=== PATIENT | male | born 1970 | race Caucasian/White ===

== ENCOUNTER 2018-05-28 20:26 | Emergency (ER) | payer BC, OTHER ==
[2018-05-28 20:36] VITALS: BP 143/97
--- NOTE | 2018-05-28 21:04 | EDM.PDOC ---
ED HPI GENERAL MEDICAL PROBLEM - General Chief Complaint: General Stated Complaint: RIB PAIN/LEFT ELBOW PAIN Time Seen by Provider: 05/28/18 21:04 Source of Information: Reports: Patient History Limitations: Reports: No Limitations - History of Present Illness INITIAL COMMENTS - FREE TEXT/NARRATIVE: 48-year-old male presents to the ED with chief complaint of severe pain in his right posterior lateral rib cage for the last 8 days. He states it's not bad if he is lying still doesn't necessarily get worse with a cough or deep breathing. However really deep breath can make it have a spasm type pain and certain movements such as getting up from the lying down position is extremely painful. He reports no trauma known to this area. No repetitive twisting or throwing events. 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 This does involve the throwing motion of a heavy metal buckle over top of the load due to type down. He is obese and this may be a muscle strain from external oblique pulling off the musculature. His other problem is pain in his left lateral elbow for the last 6 weeks. Getting worse. No known injury. No previous similar problems. He denies any severe cough in the last several weeks. He is smoking and trying to quit. Onset: Unknown/Unsure, Other (Left elbow pain has been present for about 5-1/2 weeks. Right posterior lateral rib pain gradually worsening for the last 8 days) Onset Date: 05/18/18 Duration: Day(s):, Week(s): (Left elbow pain 5 and half weeks) Location: Reports: Chest (Right posterior lateral rib pain which he is able to localize very well to the ninth 10th rib right at the angle of the rib posterior laterally in the posterior axillary line.), Upper Extremity, Left ( Pain in the left elbow is over the lateral epicondyles.) Quality: Reports: Ache ( A localized area of pain), Other (Pain in his ribs can be extremely spastic and catching pain almost takes his breath away with certain movements. He states "no better he would think that he had broken a rib. ) Severity: Moderate Improves with: Reports: Rest Worsens with: Reports: Other (Right rib pain is worsened by deep breathing and certain movements such as getting up from the lying down position. Left elbow pain is worse with certain movements such as lifting or twisting. But it aches continuously.) Context: Denies: Activity, Exercise, Lifting, Sick Contact, Trauma Associated Symptoms: Reports: No Other Symptoms Treatments DIRECTOR TELEVISION: Reports: NSAIDS (Occasionally takes Motrin.) Chest Pain Score (Numeric/FACES): 1 Right Chest Pain Score (Numeric/FACES): 8 - Related Data Allergies Allergy/AdvReac Type Severity Reaction Status Date / Time No Known Allergies Allergy Verified 05/28/18 20:32 Home Meds: Home Meds Diclofenac Sodium [Voltaren] 50 mg PO TID #30 tab.ec 05/28/18 [Rx] Ibuprofen 800 mg PO BID PRN 05/28/18 [History] predniSONE [Deltasone] 20 mg PO BID #14 tablet 05/28/18 [Rx] Past Medical History - Past Health History Medical/Surgical History: Denies Medical/Surgical History Cardiovascular History: Reports: CA - Past Surgical History GI Surgical History: Reports: Appendectomy, Hernia, Abdominal, Hernia, Inguinal Social & Family History - Family History Family Medical History: Noncontributory - Tobacco Use Smoking Status *Q: Current Every Day Smoker Years of Tobacco use: 30 Packs/Tins Daily: 1 - Caffeine Use Caffeine Use: Reports: Soda, Tea - Recreational Drug Use Recreational Drug Use: No - Living Situation & Occupation Living situation: Reports: Occupation: Employed ED ROS GENERAL - Review of Systems Review Of Systems: See Below Constitutional: Denies: Fever, Chills, Malaise, Weakness, Fatigue, Decreased Appetite, Weight Loss HEENT: Reports: No Symptoms Respiratory: Reports: Other. Denies: Shortness of Breath, Wheezing, Pleuritic Chest Pain Cardiovascular: Reports: Chest Pain (Right posterior lateral rib pain see history present illness), Blood Pressure Problem. Denies: Dyspnea on Exertion, Edema, Lightheadedness, Orthopnea Endocrine: Reports: No Symptoms GI/Abdominal: Reports: No Symptoms : Reports: Frequency, Other (Usually nocturia 2) Musculoskeletal: Reports: Other (Pain in his posterior lateral right ribs. Pain in his left lateral elbow.) Skin: Reports: No Symptoms Neurological: Reports: No Symptoms Psychiatric: Reports: No Symptoms Hematologic/Lymphatic: Reports: No Symptoms Immunologic: Reports: No Symptoms ED EXAM, GENERAL - Physical Exam Exam: See Below Exam Limited By: No Limitations General Appearance: Alert, WD/WN, Mild Distress Respiratory/Chest: Prolonged Expiration, Other (Patient has pain well localized to the posterior lateral right ribs over rib night maintained. I can make the pain slightly worse by firm palpation of his upper abdominal wall musculature where the external obliques attached to the ribs. There was no paraspinal muscle tenderness or rib head subluxation.) Cardiovascular: Normal Peripheral Pulses, Regular Rate, Rhythm, No Edema, No Murmur, No Rub GI/Abdominal: Normal Bowel Sounds, Soft, Non-Tender, No Organomegaly, Other Back Exam: Normal Inspection, Full Range of Motion. No: CVA Tenderness (L), CVA Tenderness (R) Extremities: Other (His emanation of his left upper extremity reveals pain coming from the lateral epicondyles which is well localized to an area about the size of a nickel.) Neurological: Alert, Oriented, CN II-XII Intact, Normal Cognition, Normal Gait Psychiatric: Normal Affect, Normal Mood Skin Exam: Warm, Dry, Intact, Normal Color, No Rash Course - Vital Signs Last Recorded V/S: Last Vital Signs Temp 36.6 C 05/28/18 20:35 Pulse 85 05/28/18 20:35 Resp 18 05/28/18 20:35 BP 143/97 H 05/28/18 20:35 Pulse Ox 96 05/28/18 20:35 - Orders/Labs/Meds Orders: Active Orders 24 hr Category Date Time Status Ribs 2V wo Chest Rt [CR] Stat Exams 05/28/18 21:04 Taken Meds: Medications Discontinued Medications Generic Name Dose Route Start Last Admin Trade Name Baltaq PRN Reason Stop Dose Admin Lidocaine HCl 10 ml 05/28/18 21:05 05/28/18 21:27 Xylocaine 1% INJECT 05/28/18 21:06 10 ml ONETIME ONE Administration Triamcinolone Acetonide 40 mg 05/28/18 21:05 05/28/18 21:27 Kenalog-40 INJECT 05/28/18 21:06 40 mg ONETIME ONE Administration - Radiology Interpretation Free Text/Narrative:: 48-year-old male presents the ED with 2 problems. One posterior lateral rib pain well localized to the ninth and 10th rib at the posterior axillary line. No known injury. Certain movements such as getting up from bed or exquisitely tender. He has only mild to moderate tenderness on firm palpation of the area. I suspect because it so well localized that it is likely due to muscle pulling off of the bone. Right obese and I suspect the external obliques or pulling away from the rib causing his current pain syndrome. Plan two-view chest x-ray will be obtained. Can problem is pain in the left lateral elbow for last 5-1/2 weeks. It's getting worse with increased pain and aching and limited range of motion particularly pronation and lifting. Examination reveals well localized pain to the lateral epicondyles compatible with lateral epicondylitis. I will inject this area with 40 mg of Kenalog under local anesthetic using lidocaine 1% . - Re-Assessments/Exams Free Text/Narrative Re-Assessment/Exam: 05/28/18 22:08 x-rays of his posterior lateral ribs read reveal no abnormalities although the films are not the best quality because of the patient 's size. Fractures or abnormalities of the lower ribs are appreciated. Lower portions of the right lung are also clear. It appears that this is most likely musculoskeletal in origin with tear of the external oblique muscles from the ribs likely due to activity of throwing the belts over top of his loads in the workplace. His abdominal girth is contributing to potential for tear of the external oblique musculature. Treatment will be conservative with Elbert wrap's on during the day and off at night. I will place him on Voltaren 50 mg 3 times daily to reduce pain and inflammation and this will allow him to drive safely. Also Deltasone 20 mg twice daily for the next 7 days to reduce pain and inflammation. In regards to his lateral epicondylitis left elbow I injected the area with 40 mg of Kenalog after anesthetizing the area with 1% non-buffered lidocaine. Patient tolerated the procedure well. Departure - Departure Time of Disposition: 22:10 Disposition: Home, Self-Care 01 Condition: Fair Clinical Impression: Right-sided chest wall pain, Lateral epicondylitis of left elbow Strain of abdominal wall Qualifiers: Encounter type: initial encounter Qualified Code(s): S39.011A - Strain of muscle, fascia and tendon of abdomen, initial encounter - Discharge Information *PRESCRIPTION DRUG MONITORING PROGRAM REVIEWED*: Not Applicable *COPY OF PRESCRIPTION DRUG MONITORING REPORT IN PATIENT JUSTIN: Not Applicable Prescriptions: Diclofenac Sodium [Voltaren] 50 mg PO TID #30 tab.ec predniSONE [Deltasone] 20 mg PO BID #14 tablet Instructions: Tennis Elbow, [id number], Chest Wall Pain, [id number], Muscle Strain Referrals: PCP,None [Primary Care Provider] - Forms: ED Department Discharge Additional Instructions: Evaluation the emergency room tonight for 2 reasons. First is pain in the right posterior lateral lower rib cage for the last 8-10 days. Injury has been identified to cause this. Pain is very well localized to the ninth and 10th ribs where the rib makes the curve towards the front. X-rays of the rib cage did not reveal any abnormalities of the ribs early no fractures or cancer in the bone etc. The cause is actually muscle attachment from the rib called the external obliques which makeup part of the abdominal wall. Part of the muscle was torn away from the surface of the rib which is causing your current pain and the reason it is worse with certain movements such as twisting or getting in and out of bed etc. Suggest treatment with Voltaren 50 mg 3 times daily should reduce pain and inflammation and Deltasone 20 mg with breakfast and supper for 7 days to reduce inflammation as well. Will heal on its own but usually at 621 day injury to heal up. The second problem was inflammation of the tendons where they insert anterior lateral or outside left elbow. This is called lateral epicondylitis or better known as tennis elbow. This was treated with an injection of steroid called Kenalog 40 mg under the aid of local anesthetic. Over the next 24 hours the area will become more swollen and painful because of making it more swollen. After this the pain will start to settle down and usually after 3 days pain should be pretty well gone in the left elbow. The hopes that this will last permanently however sometimes it will recur and need a repeat injection in 3 months time. It is okay to take Tylenol for pain relief if needed in her chest wall. As we discussed it is okay to wrap your chest wall for comfort with Elbert wraps on during the day and off at night for the next 10-14 days until the rib pain settles down. If for some reason the rib pain is not markedly improved in 2-3 weeks' time then you should be reviewed. 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 The left lateral epicondyle was anesthetized with 1% lidocaine and the area was infiltrated with 40 mg of Kenalog under local anesthetic.
[2018-05-28] MEDS ORDERED: Lidocaine 1% 10 ML MDV INJECT ONE (21:05)
[2018-05-28] MEDS ORDERED: Triamcinolone Acetonide 40 MG/ML 1 ML MDV INJECT ONE (21:05)
--- NOTE | 2018-05-29 07:05 | CR ---
Right ribs: Four views of the right ribs were obtained. Comparison: No prior rib exam. Degenerative spurring noted within the acromioclavicular joint of the right shoulder. Lower ribs not well seen due to overlapping of the abdomen. No discrete fracture or other abnormality is seen. Impression: 1. Degenerative spurring within the acromioclavicular joint. 2. Right rib exam shows no discrete fracture. Nondisplaced fracture could easily be missed. Diagnostic code #2
== END 2018-05-28 22:31 | disposition home or self-care (01) ==
LOC: JD.ED 20:26
DX: S39.011A Strain of muscle, fascia and tendon of abdomen, initial encounter (principal); R07.89 Other chest pain; M77.12 Lateral epicondylitis, left elbow; F17.210 Nicotine dependence, cigarettes, uncomplicated; X58.XXXA Exposure to other specified factors, initial encounter
CPT/HCPCS: 20600; 71100; 99283; J2001; J3301; 99284

== ENCOUNTER 2018-12-31 09:16 | Emergency (ER) | payer BC ==
[2018-12-31 09:27] VITALS: BP 128/75; PULSE 80
== END 2018-12-31 09:49 | disposition left against medical advice (07) ==
LOC: JD.ED 09:16
DX: Z53.21 Procedure and treatment not carried out due to patient leaving prior to being seen by health care provider (principal)

== ENCOUNTER 2019-08-29 16:38 | Emergency (ER) | payer BC, OTHER ==
[2019-08-29 16:58] VITALS: BP 132/77; PULSE 93
[2019-08-29] MEDS ORDERED: HYDROmorphone 1 MG/ML Syringe IVPUSH ONE (17:36)
[2019-08-29] MEDS ORDERED: Metoclopramide 10 MG/2 ML SDV IVPUSH ONE (17:36)
--- NOTE | 2019-08-29 17:38 | EDM.PDOC ---
ED HPI GENERAL MEDICAL PROBLEM - General Chief Complaint: Abdominal Pain Stated Complaint: LOWER LT SIDE PAIN Time Seen by Provider: 08/29/19 17:27 Source of Information: Reports: Patient History Limitations: Reports: No Limitations - History of Present Illness INITIAL COMMENTS - FREE TEXT/NARRATIVE: 49-year-old male presents to the ED with left lower quadrant abdominal pain starting about 11:00 this morning. He states the pain is constant usually at a 3-5 level but intermittently will become very colicky in be a 10 out of 10. No associated vomiting. He had a normal bowel of this morning without blood. He has a history of diverticulitis but he states this does not feel anything like previous diverticulitis. He has no history of kidney stones and has not noticed any blood in the urine or dark-colored urine. He states his this day is gone on the pain seems to becoming more intense and is staying in exactly the same place. He has to push very hard in his left lower quadrant to get it to hurt. Denies any flank pain. Previous abdominal surgery is that of a laparoscopic cholecystectomy 2 years ago. He has had a previous umbilical hernia [place] and an inguinal hernia [place] both with mesh grafting. Denies any urinary frequency. Denies fever or chills. Onset: Today, Sudden Onset Date: 08/29/19 Onset Time: 11:00 Duration: Hour(s):, Constant (Strong intermittent colicky component suggestive of renal colic), Getting Worse Location: Reports: Abdomen (Lower quadrant of the abdomen not radiating into his back.) Quality: Reports: Ache (Deep constant aching pain rated 3-5 left lower quadrant but intermittently becomes very sharp and stabbing and is 10 out of 10), Sharp, Stabbing Severity: Moderate Improves with: Reports: None Worsens with: Reports: Other Context: Reports: Other (Spontaneous occurrence). Denies: Activity (Is a little worse with coughing when standing.), Exercise, Lifting, Sick Contact, Trauma Associated Symptoms: Reports: No Other Symptoms Treatments [employer]: Reports: Other (see below) (None.) Left Lower Abdomen Pain Score (Numeric/FACES): 6 - Related Data Allergies Allergy/AdvReac Type Severity Reaction Status Date / Time No Known Allergies Allergy Verified 08/29/19 16:51 Home Meds: Home Meds Simvastatin 5 mg PO DAILY 12/31/18 [History] metFORMIN HCl [Metformin HCl] 1,000 mg PO DAILY 12/31/18 [History] Famotidine [Pepcid] 10 mg PO DAILY PRN 08/29/19 [History] Ibuprofen 600 mg PO Q6H PRN 08/29/19 [History] Melatonin 10 mg PO BEDTIME 08/29/19 [History] levoFLOXacin [Levaquin] 500 mg PO DAILY #9 tab 08/29/19 [Rx] metroNIDAZOLE [Flagyl] 500 mg PO Q8H #20 tab 08/29/19 [Rx] oxyCODONE HCl/Acetaminophen [Percocet 5-325 mg Tablet] 1 - 2 each PO Q4H PRN # 18 tablet 08/29/19 [Rx] Past Medical History - Past Health History Medical/Surgical History: Denies Medical/Surgical History Cardiovascular History: Reports: High Cholesterol, [place] Respiratory History: Reports: Sleep Apnea Gastrointestinal History: Reports: Diverticulosis, GERD, Other (See Below) ( Apparently has had 1 bout of diverticulitis in the past) Endocrine/Metabolic History: Reports: Obesity/BMI 30+, Other (See Below) Other Endocrine/Metabolic History: "pre-diabetes" patient does take metformin 1000mg daily - Infectious Disease History Infectious Disease History: Reports: Chicken Pox - Past Surgical History GI Surgical History: Reports: Appendectomy (Laparoscopic), Hernia, Abdominal ( Umbilical herniorrhaphy with mesh grafting), Hernia, Inguinal (Inguinal herniorrhaphy with mesh grafting) Social & Family History - Family History Family Medical History: Noncontributory - Tobacco Use Smoking Status *Q: Current Every Day Smoker Years of Tobacco use: 20 Packs/Tins Daily: 1 - Caffeine Use Caffeine Use: Reports: Soda - Recreational Drug Use Recreational Drug Use: No - Living Situation & Occupation Living situation: Reports: Occupation: Employed [employer] [facility] [facility] - Review of Systems Review Of Systems: See Below Constitutional: Denies: Fever, Chills, Malaise, Weakness, Fatigue, Decreased Appetite, Weight Loss HEENT: Reports: No Symptoms Respiratory: Reports: No Symptoms Cardiovascular: Reports: No Symptoms Endocrine: Reports: No Symptoms GI/Abdominal: Reports: Abdominal Pain. Denies: Constipation (History of present illness), Diarrhea, Decreased Appetite, Difficulty Swallowing, Flatus, Hematemesis, Hematochezia, Melena, Nausea, Stool Incontinence, Vomiting : Denies: Dysuria, Flank Pain, Frequency Musculoskeletal: Reports: Back Pain (Intermittent problems of low back pain) Skin: Reports: No Symptoms Neurological: Reports: No Symptoms Psychiatric: Reports: No Symptoms Hematologic/Lymphatic: Reports: No Symptoms Immunologic: Reports: No Symptoms ED EXAM, GI/ABD - Physical Exam Exam: See Below Exam Limited By: No Limitations General Appearance: Alert, WD/WN, Mild Distress, Other (Temperature is 37.1. Heart rate was 93 and sinus respiratory is 19 BP 1 3277 pulse ox 95% on room air ) Eyes: Bilateral: Normal Appearance (No blepharal pallor or scleral icterus.) Throat/Mouth: Normal Inspection, Normal Lips, Normal Oropharynx Head: Atraumatic, Normocephalic Neck: Normal Inspection, Supple, Non-Tender, Full Range of Motion. No: Lymphadenopathy (L), Lymphadenopathy (R) Respiratory/Chest: No Respiratory Distress, Lungs Clear, Normal Breath Sounds, No Accessory Muscle Use, Chest Non-Tender Cardiovascular: Normal Peripheral Pulses, Regular Rate, Rhythm, No Edema, No Murmur, No Rub GI/Abdominal Exam: Normal Bowel Sounds, Soft, No Organomegaly, Pelvis Stable, Tender (And is tender to minimal touch left upper quadrant of the abdomen just below the costal margin suggesting possible musculoskeletal origin of his pain. However he has pain on deep palpation left lower quadrant when the colon is compressed.), Other (Abdominal girth limits ability to palpate solid organs. Patient has evidence of previous umbilical herniorrhaphy and appendectomy). No : Guarding, Rigid, Rebound Back Exam: Normal Inspection, Full Range of Motion. No: CVA Tenderness (L), CVA Tenderness (R) Extremities: Normal Inspection, Normal Range of Motion, Non-Tender Neurological: Alert, Oriented, CN II-XII Intact, Normal Cognition Psychiatric: Normal Affect, Normal Mood Skin Exam: Warm, Dry, Intact, Normal Color, No Rash Course - Vital Signs Last Recorded V/S: Last Vital Signs Temp 37.1 C 08/29/19 16:49 Pulse 93 08/29/19 16:49 Resp 19 08/29/19 16:49 BP 132/77 08/29/19 16:49 Pulse Ox 95 08/29/19 16:49 - Orders/Labs/Meds Orders: Active Orders 24 hr Category Date Time Status Abdomen 1V Flat [CR] Stat Exams 08/29/19 17:37 Taken Abdomen Pelvis wo Cont [CT] Stat Exams 08/29/19 18:52 Taken Sodium Chloride 0.9% [Normal Saline] 1,000 ml Med 08/29/19 17:45 Active IV ASDIRECTED Medication Orders Sodium Chloride (Normal Saline) 1,000 mls @ 250 mls/hr IV ASDIRECTED ANGIE Last Admin: 08/29/19 17:49 Dose: 250 mls/hr Labs: Laboratory Tests 08/29/19 08/29/19 08/29/19 Range/Units 17:42 17:42 18:10 WBC 14.49 H (4.23-9.07) K/mm3 RBC 5.44 (4.63-6.08) M/mm3 Hgb 16.1 (13.7-17.5) gm/dl Hct 47.6 (40.1-51.0) % MCV 87.5 (79.0-92.2) fl MCH 29.6 (25.7-32.2) pg MCHC 33.8 (32.2-35.5) g/dl RDW Std Deviation 46.2 H (35.1-43.9) fL Plt Count 309 (163-337) K/mm3 MPV 10.2 (9.4-12.3) fl Neut % (Auto) 67.2 (34.0-67.9) % Lymph % (Auto) 22.2 (21.8-53.1) % [place] % (Auto) 7.1 (5.3-12.2) % Eos % (Auto) 2.3 (0.8-7.0) Baso % (Auto) 0.6 (0.1-1.2) % Neut # (Auto) 9.76 H (1.78-5.38) K/mm3 Lymph # (Auto) 3.21 (1.32-3.57) K/mm3 [place] # (Auto) 1.03 H (0.30-0.82) K/mm3 Eos # (Auto) 0.33 (0.04-0.54) K/mm3 Baso # (Auto) 0.08 (0.01-0.08) K/mm3 Manual Slide Review Normal smear Sodium 140 (136-145) mEq/L Potassium 4.0 (3.5-5.1) mEq/L Chloride 105 (98-107) mEq/L Carbon Dioxide 26 (21-32) mEq/L Anion Gap 13.0 (5-15) BUN 14 (7-18) mg/dL Creatinine 1.0 (0.7-1.3) mg/dL Est Cr Clr Drug Dosing 96.22 mL/min Estimated GFR (MDRD) > 60 (>60) mL/min BUN/Creatinine Ratio 14.0 (14-18) Glucose 113 H (74-106) mg/dL Calcium 8.8 (8.5-10.1) mg/dL Total Bilirubin 0.4 (0.2-1.0) mg/dL AST 23 (15-37) U/L ALT 34 (16-63) U/L Alkaline Phosphatase 90 (46-116) U/L C-Reactive Protein 0.4 (<1.0) mg/dL Total Protein 7.5 (6.4-8.2) g/dl Albumin 3.8 (3.4-5.0) g/dl Globulin 3.7 gm/dL Albumin/Globulin Ratio 1.0 (1-2) Urine Color Yellow (Yellow) Urine Appearance Clear (Clear) Urine pH 6.0 (5.0-8.0) Ur Specific [place] > or = 1.030 (1.005-1.030) Urine Protein Negative (Negative) Urine Glucose (UA) Negative (Negative) Urine Ketones Negative (Negative) Urine Occult Blood Trace-intact H (Negative) Urine Nitrite Negative (Negative) Urine Bilirubin Negative (Negative) Urine Urobilinogen 0.2 (0.2-1.0) Ur Leukocyte Esterase Negative (Negative) Urine RBC 0-5 (0-5) /hpf Urine WBC Not seen (0-5) /hpf Ur Squamous Epith Cells 0-5 (0-5) /hpf Urine Bacteria Rare (FEW) /hpf Urine Mucus Few (FEW) /hpf Meds: Medications Generic Name Dose Route Start Last Admin Trade Name Freq PRN Reason Stop Dose Admin Sodium Chloride 1,000 mls @ 250 mls/hr 08/29/19 17:45 08/29/19 17:49 Normal Saline IV 250 mls/hr ASDIRECTED ANGIE Administration Discontinued Medications Generic Name Dose Route Start Last Admin Trade Name Freq PRN Reason Stop Dose Admin Hydromorphone HCl 1 mg 08/29/19 17:36 08/29/19 17:49 Dilaudid IVPUSH 08/29/19 17:37 1 mg ONETIME ONE Administration Hydromorphone HCl 0.5 mg 08/29/19 18:50 08/29/19 18:59 Dilaudid IVPUSH 08/29/19 18:51 0.5 mg ONETIME ONE Administration Levofloxacin 500 mg 08/29/19 20:11 Levaquin PO 08/29/19 20:12 ONETIME ONE Metoclopramide HCl 10 mg 08/29/19 17:36 08/29/19 17:49 Reglan IVPUSH 08/29/19 17:37 10 mg ONETIME ONE Administration Metronidazole 1,000 mg 08/29/19 20:11 Flagyl PO 08/29/19 20:12 ONETIME ONE - Radiology Interpretation Free Text/Narrative:: 49-year-old male presents to the ED with sudden onset of left lower quadrant abdominal pain about 11:00 this morning. Since that time the pain is persisted in the same area and is constant and he rates the pain as a 4-5 in this area and then intermittently becomes very sharp and colicky and is a 10 out of 10. Is not associate with any vomiting diarrhea fever or chills. He had a normal bowel movement this morning. He has a history of diverticulosis and one bout of diverticulitis. He has no history of renal colic. No changes noted in his urine. Exam reveals tenderness of the left upper quadrant suggesting musculoskeletal origin of pain. However he does have significant pain on deep palpation in the left lower quadrant in the distribution of the colon. Plan KUB. IV normal saline at 250 mils per hour Dilaudid 1 mg IV with Reglan 10 mg IV for pain and nausea relief. Urinalysis when 1 becomes available. Routine labs. - Re-Assessments/Exams Free Text/Narrative Re-Assessment/Exam: 08/29/19 18:09 KUB of the abdomen was done in 4 quadrants due to this patient's size. He has no evidence of free air under the diaphragm. There is a stool bolus at the hepatic flexure. The left colon is air-filled without any stool down to the rectal vault. No obvious stones in either kidney or gallbladder. 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 There is a few nonspecific minimally dilated loops of small bowel left mid abdomen.White count is elevated at 14.49. The auto differential shows 67% neutrophils. Hemoglobin is 16.1 with hematocrit of 47.6. Platelet count is 309,000. 08/29/19 18:53 states the pain was gone for period of time but is now starting to come back in a colicky fashion. Repeat Dilaudid 0.5 mg IV for pain relief. Urinalysis is now back and shows trace of occult blood in the dip. However the slide does not show any red cells. Going to therefore proceed with CT of the abdomen and pelvis per renal protocol. I should be able to see his colon quite well as he is a very large girth. 08/29/19 20:03 he of the abdomen pelvis done per renal protocol does not reveal any signs of a kidney stone. There is a calcified granuloma in the right lower lobe of the lung. There are no pleural effusions. Diffuse fatty infiltration of the liver appreciated. The gallbladder is not distended. There are multiple small gallstones within the gallbladder however. No biliary duct dilatation. Pancreas is within normal limits spleen is normal. Adrenal glands appear normal in appearance. The kidneys are symmetric in size. There is no evidence of hydronephrosis or renal stone. Ureters are normal in caliber. The stomach is not distended. No pathologically dilated small bowel loops are identified. There is diverticulosis of the descending and sigmoid colon. There is focal inflammation surrounding a diverticulum in the mid descending colon. The appearance is consistent with acute diverticulitis. There is no evidence of perforation or abscess. The appendix is not identified. The aorta is normal in caliber. No pathologically enlarged lymph nodes are identified in the abdomen or pelvis. Urinary bladder appears normal. Plan patient is pain- free at this time. He will be given Levaquin 500 mg p.o. and Flagyl 500 mg by mouth now. He will be started on Flagyl 500 mg 3 times daily for the next 7 days and Levaquin 500 mg once daily for another 9 days to complete 10 days of therapy. Percocet tabs 5/325 mg 1 or 2 every 4-6 hours necessary for pain relief for the next day or 2. Note given to excuse him from work for the next 48 hours as he does do manual labor in the workplace. Will return to medical care if he develops fever chills nausea vomiting or pain is not markedly improved in 48 to 72 hours time. Departure - Departure Time of Disposition: 20:06 Disposition: Home, Self-Care 01 Condition: Fair Clinical Impression: Acute diverticulitis Abdominal pain Qualifiers: Abdominal location: left lower quadrant Qualified Code(s): R10.32 - Left lower quadrant pain - Discharge Information *PRESCRIPTION DRUG MONITORING PROGRAM REVIEWED*: Not Applicable *COPY OF PRESCRIPTION DRUG MONITORING REPORT IN PATIENT JUSTIN: Not Applicable Prescriptions: levoFLOXacin [Levaquin] 500 mg PO DAILY #9 tab metroNIDAZOLE [Flagyl] 500 mg PO Q8H #20 tab oxyCODONE HCl/Acetaminophen [Percocet 5-325 mg Tablet] 1 - 2 each PO Q4H PRN # 18 tablet PRN Reason: pain relief. Instructions: Diverticulitis, [id number] Referrals: Rosemary Castro PA-C [Primary Care Provider] - Forms: ED Department Discharge, ED Return to Work/School Form Additional Instructions: Evaluation in the emergency room today in regards to development of acute left lower quadrant abdominal pain about 11:00 this morning. On looking back you did have some left-sided discomfort last evening at home. Examination reveals pain localized to the left lower quadrant over the distribution of the left large bowel or colon. History suggest you have had 1 bout of diverticulitis in the past. There is a strong colicky component to this pain suggesting possible renal stone as a cause of your pain. Lab tests do reveal that the white count is slightly elevated suggesting an underlying infective process. It was 14.5. Normal is less than 10. No noted fever. Urinalysis returned as negative for any red blood cells. CT scan of the abdomen was performed without any contrast and it does identify an area of diverticulitis over the lower left descending colon at the junction with the sigmoid colon. This is in the very early stages of development. Treatment is therefore antibiotic Levaquin 500 mg once daily for the next 10 days. The first tablet was provided in the ED tonight. Also Flagyl 500 mg 1 tablet 3 times daily for the next 7 days to help clear up this infection as well. Percocet 5/325 mg tab 1 or 2 every 4-6 hours necessary for pain relief for the next 2 to 3 days until the pain subsides. Suggest off work for the next 2 days until the bowel has a chance to respond to antibiotic therapy and pain improves. You would need to return to the ED if you develop high fever severe chills or nausea or vomiting. Also if the pain worsens instead of improves over the next 48 to 72 hours you would need to return to the ED. Sepsis Event Note - Evaluation Sepsis Screening Result: No Definite Risk - Focused Exam Vital Signs: Vital Signs Temp Pulse Resp BP Pulse Ox 08/29/19 16:49 37.1 C 93 19 132/77 95 Date Exam was Performed: 08/29/19 Time Exam was Performed: 20:20 - My Orders Last 24 Hours: My Active Orders 08/29/19 17:37 Abdomen 1V Flat [CR] Stat 08/29/19 17:45 Sodium Chloride 0.9% [Normal Saline] 1,000 ml IV ASDIRECTED 08/29/19 18:52 Abdomen Pelvis wo Cont [CT] Stat - Assessment/Plan Last 24 Hours: My Active Orders 08/29/19 17:37 Abdomen 1V Flat [CR] Stat 08/29/19 17:45 Sodium Chloride 0.9% [Normal Saline] 1,000 ml IV ASDIRECTED 08/29/19 18:52 Abdomen Pelvis wo Cont [CT] Stat
[2019-08-29] MEDS ORDERED: Sodium Chloride 0.9% 1,000 ML IV SCH (17:45)
[2019-08-29] MEDS ORDERED: HYDROmorphone 0.5 MG/0.5 ML Syringe IVPUSH ONE (18:50)
[2019-08-29] MEDS ORDERED: metroNIDAZOLE 500 MG Tab PO ONE (20:11)
[2019-08-29] MEDS ORDERED: Levofloxacin 250 MG Tab PO ONE (20:11)
--- NOTE | 2019-08-30 07:21 | CR ---
Abdomen: Supine view of the abdomen was obtained. Comparison: Prior abdominal x-ray of 10/07/17. Bowel gas pattern appears normal. No abnormal calcifications or soft tissue abnormality is seen. Degenerative change is noted within both hips. Scattered endplate spurring is noted within the spine. Impression: 1. Nothing acute is appreciated on supine abdominal x-ray. Diagnostic code #2 This report was dictated in MDT
--- NOTE | 2019-08-30 07:30 | CT ---
CT abdomen and pelvis Technique: Multiple axial sections were obtained from above the dome of the diaphragm inferiorly through the pubic symphysis. Intravenous and oral contrast not utilized. Comparison: Prior CT abdomen and pelvis exam of 10/07/17. Findings: Calcified granuloma is noted within the right lung base measuring 7 mm in size. Liver shows no focal parenchymal abnormality. Spleen size is normal. Small calcified gallstones are seen within the gallbladder. Adrenal glands show no nodule. Pancreas is within normal limits. Aorta shows no aneurysm. No retroperitoneal adenopathy or mesenteric abnormalities are seen. Surgical material is seen off the tip of the cecum presumably from previous appendectomy as the appendix is not visualized. No pelvic mass or adenopathy is seen. Mild inflammatory change is noted around the mid descending colon in the area of diverticuli. This is felt compatible with a mild diverticulitis. Other diverticuli are seen within the sigmoid colon and within other portions of the descending colon without additional findings of diverticulitis. Bone window settings were reviewed. No acute osseous finding is seen. Mild degenerative change is scattered within the spine. Impression: 1. Mild diverticulitis within the mid descending colon. 2. Small calcified gallstones within the gallbladder. 3. No additional abnormality is appreciated. Diagnostic code #3 This report was dictated in MDT I agree with preliminary report from harry, finalized on 08/29/19, 8:41 PM Central Daylight Time
== END 2019-08-29 20:48 | disposition home or self-care (01) ==
LOC: JD.ED 16:38
DX: K57.32 Diverticulitis of large intestine without perforation or abscess without bleeding (principal); I25.2 Old myocardial infarction; E78.00 Pure hypercholesterolemia, unspecified; K21.9 Gastro-esophageal reflux disease without esophagitis; E66.9 Obesity, unspecified; Z68.42 Body mass index [BMI] 45.0-49.9, adult; Z79.899 Other long term (current) drug therapy; Z90.49 Acquired absence of other specified parts of digestive tract; Z98.890 Other specified postprocedural states
CPT/HCPCS: 36415; 74018; 74176; 80053; 81001; 85025; 86140; 96374; 96375; 96376; 99284; A9270; J1170; J2765; J7030

== ENCOUNTER 2019-11-07 17:48 | Emergency (ER) | payer BC, OTHER ==
[2019-11-07 18:07] VITALS: BP 134/57; PULSE 102
[2019-11-07] MEDS ORDERED: Sodium Chloride 0.9% 10 ML Syringe FLUSH PRN (18:25)
[2019-11-07] MEDS ORDERED: HYDROmorphone 1 MG/ML Syringe IVPUSH ONE (18:26)
--- NOTE | 2019-11-07 18:35 | EDM.PDOC ---
ED HPI GENERAL MEDICAL PROBLEM - General Chief Complaint: Lower Extremity Injury/Pain Stated Complaint: ABSCESS ON INNER SIDE OF THIGH Time Seen by Provider: 11/07/19 18:10 Source of Information: Reports: Patient, RN Notes Reviewed History Limitations: Reports: No Limitations - History of Present Illness INITIAL COMMENTS - FREE TEXT/NARRATIVE: Patient is a 49-year-old male who presents to the ED for the evaluation of an abscess on his inner groin area. Patient notes that he has an area on the upper inner thigh, near the leg crease, just near the scrotum that he noticed 2 nights ago. He states this was about golf ball size in size. He notes that he has gotten lumps like this before, but they resolve themselves by popping. He states that this 1 did not however he states it is becoming increasingly more painful, and he also developed a fever yesterday. Temperature at time of triage is 99.1 F. Patient does appreciate some redness around the lump as well, which has not been present before. Other than his fever, he denies any other sick- like symptoms, chills/shortness of breath/cough, nausea/vomiting/diarrhea. 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 He did take some Tylenol/ibuprofen for the pain, early this morning, but has not taken anything since then. Right Groin Pain Score (Numeric/FACES): 8 - Related Data Allergies Allergy/AdvReac Type Severity Reaction Status Date / Time No Known Allergies Allergy Verified 08/29/19 16:51 Home Meds: Home Meds Hydrocodone/Acetaminophen [Hydrocodone-Acetamin 10-325 mg] 1 each PO Q6H #15 tablet 11/07/19 [Rx] Simvastatin 5 mg PO BEDTIME 11/07/19 [History] cephALEXin [Cephalexin] 500 mg PO BID #20 tablet 11/07/19 [Rx] metFORMIN HCl [Metformin HCl] 1,000 mg PO DAILY 11/07/19 [History] Past Medical History Cardiovascular History: Reports: High Cholesterol, [place] Respiratory History: Reports: Sleep Apnea Gastrointestinal History: Reports: Diverticulosis, GERD Endocrine/Metabolic History: Reports: Obesity/BMI 30+, Other (See Below) Other Endocrine/Metabolic History: "pre-diabetes" patient does take metformin 1000mg daily - Infectious Disease History Infectious Disease History: Reports: Chicken Pox - Past Surgical History GI Surgical History: Reports: Appendectomy, Hernia, Abdominal, Hernia, Inguinal Social & Family History - Family History Family Medical History: Noncontributory - Tobacco Use Smoking Status *Q: Current Every Day Smoker Years of Tobacco use: 30 Packs/Tins Daily: 0.5 - Caffeine Use Caffeine Use: Reports: Soda - Living Situation & Occupation Living situation: Reports: Occupation: Employed Review of Systems - Review of Systems Review Of Systems: Comprehensive ROS is negative, except as noted in HPI. ED EXAM, GENERAL - Physical Exam Exam: See Below Exam Limited By: No Limitations General Appearance: Alert, WD/WN, No Apparent Distress Respiratory/Chest: No Respiratory Distress, Lungs Clear, No Accessory Muscle Use, Chest Non-Tender, Wheezing (bilaterally, pt is a smoker but is not in any distress) Cardiovascular: Normal Peripheral Pulses, Regular Rate, Rhythm, No Murmur Peripheral Pulses: 2+: Femoral (L), Femoral (R) Extremities: Normal Range of Motion, Normal Capillary Refill, Increased Warmth (of upper inner right leg), Redness (of upper inner right leg) Psychiatric: Normal Affect, Normal Mood Skin Exam: Warm, Dry, Intact, No Rash, Erythema (of upper inner right leg, there is an area that is about prune size that is very tender to the touch; this is just lateral to the base of the scrotum in the leg crease), Increased Warmth (of upper inner right leg, there is an area that is about prune size that is very tender to the touch) Course - Vital Signs Last Recorded V/S: Last Vital Signs Temp 99.1 F 11/07/19 18:01 Pulse 102 H 11/07/19 18:01 Resp 16 11/07/19 18:01 BP 134/57 L 11/07/19 18:01 Pulse Ox 96 11/07/19 18:01 - Orders/Labs/Meds Orders: Active Orders 24 hr Category Date Time Status Notify Provider Consults [RC] ASDIRECTED Care 11/07/19 18:42 Ordered Peripheral IV Care [RC] . 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 [MOLEC] Stat Lab 11/07/19 18:53 Received Sodium Chloride 0.9% [Saline Flush] Med 11/07/19 18:25 Ordered 10 ml FLUSH ASDIRECTED PRN Peripheral IV Insertion Adult [OM.PC] Routine Oth 11/07/19 18:25 Ordered Medication Orders Sodium Chloride (Saline Flush) 10 ml FLUSH ASDIRECTED PRN PRN Reason: Keep Vein Open Last Admin: 11/07/19 18:50 Dose: 10 ml Documented by: HERMMIC Labs: Laboratory Tests 11/07/19 11/07/19 Range/Units 18:37 18:37 WBC 14.32 H (4.23-9.07) K/mm3 RBC 5.42 (4.63-6.08) M/mm3 Hgb 15.8 (13.7-17.5) gm/dl Hct 48.0 (40.1-51.0) % MCV 88.6 (79.0-92.2) fl MCH 29.2 (25.7-32.2) pg MCHC 32.9 (32.2-35.5) g/dl RDW Std Deviation 45.1 H (35.1-43.9) fL Plt Count 272 (163-337) K/mm3 MPV 10.3 (9.4-12.3) fl Neutrophils % (Manual) 69 H (40-60) % Band Neutrophils % 0 (0-10) % Lymphocytes % (Manual) 27 (20-40) % Atypical Lymphs % 0 % Monocytes % (Manual) 2 (2-10) % Eosinophils % (Manual) 1 (0.8-7.0) % Basophils % (Manual) 1 (0.2-1.2) Platelet Estimate Adequate Plt Morphology Comment Normal Hypochromasia 1+ slight RBC Morph Comment Abnormal Sodium 137 (136-145) mEq/L Potassium 3.8 (3.5-5.1) mEq/L Chloride 102 (98-107) mEq/L Carbon Dioxide 29 (21-32) mEq/L Anion Gap 9.8 (5-15) BUN 11 (7-18) mg/dL Creatinine 1.2 (0.7-1.3) mg/dL Est Cr Clr Drug Dosing 80.18 mL/min Estimated GFR (MDRD) > 60 (>60) mL/min BUN/Creatinine Ratio 9.2 L (14-18) Glucose 124 H (74-106) mg/dL Calcium 8.4 L (8.5-10.1) mg/dL Total Bilirubin 0.3 (0.2-1.0) mg/dL AST 14 L (15-37) U/L ALT 31 (16-63) U/L Alkaline Phosphatase 78 (46-116) U/L Total Protein 7.3 (6.4-8.2) g/dl Albumin 3.3 L (3.4-5.0) g/dl Globulin 4.0 gm/dL Albumin/Globulin Ratio 0.8 L (1-2) Meds: Medications Generic Name Dose Route Start Last Admin Trade Name Freq PRN Reason Stop Dose Admin Sodium Chloride 10 ml 11/07/19 18:25 11/07/19 18:50 Saline Flush FLUSH 10 ml ASDIRECTED PRN Administration Keep Vein Open Discontinued Medications Generic Name Dose Route Start Last Admin Trade Name Freq PRN Reason Stop Dose Admin Hydrocodone Bitart/Acetaminophen 2 tab 11/07/19 19:44 [place] 325-5 Mg PO 11/07/19 19:45 ONETIME ONE Cephalexin 500 mg 11/07/19 19:44 Keflex PO 11/07/19 19:45 ONETIME ONE Hydromorphone HCl 1 mg 11/07/19 18:26 11/07/19 18:51 Dilaudid IVPUSH 11/07/19 18:27 1 mg ONETIME ONE Administration Lidocaine HCl 10 ml 11/07/19 19:37 11/07/19 19:52 Xylocaine 1% INJECT 11/07/19 19:38 10 ml ONETIME ONE Administration - Re-Assessments/Exams Free Text/Narrative Re-Assessment/Exam: 11/07/19 18:37 Patient presents to the ED for evaluation of his abscess. I do believe this area would benefit from I&D, however this does feel a little bit deeper than I would feel comfortable doing myself. I will likely consult Dr. Carrillo, to see if he would like to come incise and drain this area at this time to help provide the gentleman pain relief. He does have a surrounding cellulitis that would benefit from antibiotic therapy. I have however ordered an IV to be placed, will get a CBC and a CMP for basic labs, patient will be given 1 mg Dilaudid for pain management. 11/07/19 19:39 The patient was assessed by Dr. Carrillo at bedside, and he will perform the incision and drainage at bedside in the ER. He did go over dressing changes with the patient, and he verbalized understanding at this time. Departure - Departure Time of Disposition: 19:39 Disposition: Home, Self-Care 01 Condition: Good Clinical Impression: Cellulitis and abscess of right leg - Discharge Information *PRESCRIPTION DRUG MONITORING PROGRAM REVIEWED*: Yes *COPY OF PRESCRIPTION DRUG MONITORING REPORT IN PATIENT JUSTIN: No Prescriptions: cephALEXin [Cephalexin] 500 mg PO BID #20 tablet Hydrocodone/Acetaminophen [Hydrocodone-Acetamin 10-325 mg] 1 each PO Q6H #15 tablet Instructions: Skin Abscess, [id number] Referrals: Rosemary Castro PA-C [Primary Care Provider] - Forms: ED Department Discharge Additional Instructions: You were evaluated in the ER today regarding a suspected skin infection. It does appear that you have a cellulitis. Your skin was marked around the borders of the redness, if this redness should extend 2 finger widths past this initial payam, recommend you seek care for re-evaluation. You did also have an abscess, this was incised and drained, in the ER, you do have gauze packing placed, you will be sent home with a tube of gauze to replace his packing. When you shower at night, remove the old packing, and as soon as you get out of the shower, please place a small strip within the wound to help provide further healing from the inside out. You were given a antibiotic, cephalexin 500 mg twice daily please take as prescribed until the course is done or told otherwise by different provider. Please note that this antibiotic will take at least 48 hours to start working appropriately. You may try to use heat/ice packs to the area to help reduce pain/swelling. You may take 500 mg Tylenol or 600 mg ibuprofen every 6 hours as needed for further pain relief. Do not exceed 4000 mg Tylenol or 3200 mg ibuprofen in a 24-hour time span. You were given a prescription for a strong pain medication, hydrocodone/acetaminophen 10/325mg , please take 1 tab every 6 hours as needed for pain not relieved by Tylenol or ibuprofen alone. Please note this medication does contain Tylenol in it, so do not take more than 4000 mg in a 24-hour time span. These medications can be addictive, so please take as few as possible to achieve adequate pain control. These meds can also be quite constipating, recommend that you increase your oral fluid intake and take a stool softener like MiraLAX while taking these medications. Do not drive while taking this medication. Please call our clinic, , and schedule an appoint with Dr. Carrillo, if you are having issues regarding the wound healing, so he can reevaluate you at that time. Please return to the ER at any time if your symptoms change or worsen. Sepsis Event Note (ED) - Evaluation Sepsis Screening Result: No Definite Risk - Focused Exam Vital Signs: Vital Signs Temp Pulse Resp BP Pulse Ox 11/07/19 18:01 99.1 F 102 H 16 134/57 L 96 - My Orders Last 24 Hours: My Active Orders 11/07/19 18:25 Sodium Chloride 0.9% [Saline Flush] 10 ml FLUSH ASDIRECTED PRN Peripheral IV Insertion Adult [OM.PC] Routine 11/07/19 18:26 Peripheral IV Care [RC] . 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
[2019-11-07] MEDS ORDERED: Lidocaine 1% 10 ML MDV INJECT ONE (19:37)
[2019-11-07] MEDS ORDERED: Cephalexin 500 MG Cap PO ONE (19:44)
[2019-11-07] MEDS ORDERED: Acetaminophen/HYDROcodone 325-5 MG Tab PO ONE (19:44)
--- NOTE | 2019-11-07 20:07 | PCM.PRNOTE ---
- Free Text/Narrative Note: Date: 11/07/2019 Procedure: incision and drainage of right thigh abscess Detailed report: Informed consent was obtained. The right upper medial thigh was prepped with chloraprep. 3 cc 1% lidocaine was injected intradermally at the central portion of palpable induration, which was about the size of a golf ball. An 11 blade was used to make a stab incision though the skin into the subcutaneous tissue, the incision measured 3 cm in length. A clamp was inserted into the wound and used to break up loculations. about 10-15 cc of pus was drained. The wound was packed for hemostasis. After a few minutes, packing was removed and the wound was hemostatic. Iodoform gauze strip packing was placed into the abscess cavity, and the area was dressed with gauze left between the intertriginous fold. The patient tolerated the procedure well. I reviewed proper wound care, including BID packing with gauze, taking keflex as prescribed. He will call the surgical clinic if any questions or problems arise. Juanito Carrillo MD General Surgery
== END 2019-11-07 20:20 | disposition home or self-care (01) ==
LOC: JD.ED 17:48
DX: L03.115 Cellulitis of right lower limb (principal); L02.415 Cutaneous abscess of right lower limb; E78.00 Pure hypercholesterolemia, unspecified; I25.2 Old myocardial infarction; E66.9 Obesity, unspecified; F17.210 Nicotine dependence, cigarettes, uncomplicated; Z79.84 Long term (current) use of oral hypoglycemic drugs; Z79.899 Other long term (current) drug therapy; Z68.42 Body mass index [BMI] 45.0-49.9, adult
CPT/HCPCS: 10060; 36415; 80053; 85007; 85027; 87641; 96374; 99283; A9270; J1170; J2001